=== PATIENT | male | born 1935 | race Caucasian/White ===

== ENCOUNTER 2019-08-01 06:28 | Observation (INO) | payer OTHER ==
[2019-07-21 08:47] LABS: ABSOLUTE BASOPHILS 0.1 thou/uL (0.0-0.2); ABSOLUTE EOSINOPHILS 0.2 thou/uL (0.0-0.7); ABSOLUTE LYMPHOCYTES 1.8 thou/uL (0.8-5.3); ABSOLUTE MONOCYTES 0.6 thou/uL (0.0-1.2); ABSOLUTE NEUTROPHILS 4.6 thou/uL (1.6-8.1); BASOPHILS 0.8 %; EOSINOPHILS 3.4 %; HEMATOCRIT 41.3 % (42.0-52.0); HEMOGLOBIN 14.6 gm/dL (14.0-18.0); LYMPHOCYTES 24.9 %; MCH 32.6 pg (26.0-34.0); MCHC 35.4 g/dL (28.0-37.0); MCV 92.1 fL (80.0-100.0); MONOCYTES 7.7 %; MPV 7.5 fl. (7.2-11.1); NUCLEATED RBCS 0 /100WBC; PLATELET COUNT* 203 thou/uL (150-400); POLYS 63.2 %; RBC 4.49 mil/uL (4.50-6.00); RDW-CV 13.5 % (10.5-14.5); WBC 7.3 thou/uL (4.0-11.0)
[2019-07-21 08:59] LABS: APTT 26.7 Seconds (25.0-31.3); PROTIME 10.6 Seconds (9.20-11.50)
[2019-07-21 09:08] LABS: CALCIUM 8.9 mg/dL (8.5-10.1); POTASSIUM 4.2 mmol/L (3.5-5.1); TOTAL BILIRUBIN 0.6 mg/dL (<0.1-1.0); TOTAL PROTEIN 7.3 g/dL (6.4-8.2)
[2019-07-21 10:50] LABS: ESR (SEDRATE) 13 mm/hr (0-20)
--- NOTE | 2019-07-29 14:57 | EKG ---
[place] [address] ELECTROCARDIOGRAM REPORT Name: PRAKASH GELLER Room: [facility]#: [id number] Admission: Attend Phys: Jaziel Rivera DO Discharge: Date of : 33 Date of Service: 07/21/19858 Report #: [id number] THIS REPORT FOR: //name// [facility] Test Date: 2019-07-21 Test Time: 08:59:15 Pat Name: PRAKASH GELLER Department: Room: Gender: Fitness Floor Attendant: : 1935 Requested By: Jaziel Rivera Order Number: [id number] Francesco MD: Xavier Mota Measurements Intervals [place] Rate: 60 P: 0 FL: 176 QRS: -9 QRSD: 101 T: 30 QT: 412 QTc: 412 Interpretive Statements Sinus rhythm No previous ECG available for comparison Electronically Signed On 07-21-2019 9:56:17 FORMULA TECHNICIAN by Xavier Mota [email or web address] <ELECTRONICALLY SIGNED> By: Xavier Mota MD, [facility] 07/21/19 0956 0859 Xavier Mota MD, FACC /EPI
[~2019-08-01] VITALS: Ht 177.8 cm; Wt 88.0 kg
--- NOTE | ~2019-08-01 | OP ---
[address] [address] OPERATIVE REPORT Name: PRAKASH GELLER Room: [address] Garry Montiel#: [id number] Admission: 08/01/19 Attend Phys: Perez Barraza Discharge: Date of : 33 Report #: [id number] THIS REPORT FOR: //name// cc: Xavier Thurston MD, David D. MD ~ THIS REPORT FOR: //name// CC: Xavier Bragg DICTATED BY: Harrison Walter DO DATE OF SERVICE: 08/01/2019 PREOPERATIVE DIAGNOSIS: Left knee advanced degenerative joint disease. POSTOPERATIVE DIAGNOSIS: Left knee advanced degenerative joint disease. SURGERY PERFORMED: Left total knee arthroplasty. SURGEON: Jaziel Rivera DO TRANSFER COORDINATOR: JAH Finch SECOND FIXER BOARDING ROOM: Harrison Walter DO ANESTHESIA: General. ESTIMATED BLOOD LOSS: 390 mL. COMPLICATIONS: None. CONDITION: Stable to PACU. ORTHOPEDIC IMPLANTS: Biomet Vanguard total knee system with following components; 1. Size 72.5 mm CR femoral component. 2. A 79 mm tibial baseplate. 3. A 79 mm anterior stabilized tibial bearing. 4. A 37 mm asymmetric polyethylene patella. INDICATIONS FOR PROCEDURE: The patient is a pleasant 84-year-old male who has been followed in the outpatient orthopedic clinic regarding longstanding left knee pain. He has tried and failed conservative care consisting of home exercises, activity modifications, NSAID analgesia and corticosteroid injections. He has had continued pain that adversely affect his quality of [facility] [address] [place] [address] OPERATIVE REPORT Name: PRAKASH GELLER Zainab Room: [address] Tiana#: [id number] Admission: 08/01/19 Attend Phys: Perez Barraza Discharge: Date of : 33 Report #: [id number] life. We discussed further treatment including left total knee arthroplasty. Risks, benefits, complications and alternatives of the procedure were discussed with the patient in detail. Risks include but are not limited to DVT/PE bleeding, infection, continued knee pain, periprosthetic fracture, loosening of components, need for repeat surgery and complication with anesthesia and even . The patient expressed understanding and wished to proceed. DESCRIPTION OF PROCEDURE: The patient was transferred to the operating suite and placed on the operating table in the supine position. He was given the benefit of general anesthesia. A well-padded pneumatic tourniquet was placed on left upper thigh. The left lower extremity was then prepped and draped in the usual sterile fashion. A timeout was taken to confirm the appropriate patient identification, operative site and procedure to be performed. All in the room were in agreement with the timeout. An incision was performed over the anterior aspect of the left knee longitudinally. Dissection was carried down sharply to the level of the joint capsule and extensor mechanism. A fresh scalpel blade was then used to perform a medial parapatellar arthrotomy. A medial subperiosteal sleeve was developed along the tibia. The patella was everted. Infrapatellar fat pad was sharply excised. Femoral drill was then used to gain femoral canal access. Intramedullary guide was inserted, set to resect 12 mm of bone off the distal femur. Sagittal saw was then used to perform a distal femoral cut. Attention was then addressed to the tibia where the extramedullary guide was used to pin the proximal tibial cutting block in place. This was referenced 12 mm off the high lateral side and in line with the medial third of the tubercle and the middle of the talus, then the tibial crest. The proximal tibial cut was then performed through the cutting block. During all of our bony resection, retractors were used to protect vital structures. Extension block was then checked, which demonstrated full extension and a well-balanced knee to varus and valgus. Attention was then addressed back to the femur where the AP sizer was used to measure the distal femur to a size 72.5 mm. This cutting block was pinned into place, 3 degrees of external rotation, relative to the posterior condylar axis. The anterior, posterior and chamfer cuts were then performed through the cutting block. Excess bone was removed. Menisci, ACL and PCL were then excised using electrocautery. Trial tibial baseplate was then pinned into position in appropriate rotation, measuring a size 79 mm. The trial femoral component was then malleted into position. A 10 mm trial spacer was placed. The knee was taken through range of motion and was found to be well balanced in flexion and extension. It achieved full extension. Varus and valgus were stable in full extension, mid flexion and full flexion. The patella was then everted and [place] [address] OPERATIVE REPORT Name: PRAKASH GELLER Room: [address] Garry Montiel#: [id number] Admission: 08/01/19 Attend Phys: Perez Barraza Discharge: Date of : 33 Report #: [id number] reamer. This then measured to a size 37 mm. Patellar peg holes were drilled and a trial patella was placed. The knee was again taken through range of motion and was found to be stable again and the patella was noted to track well throughout the flexion arc. Trial components were then removed. The tibia was reamed and punched through the tibial tray. The knee was thoroughly irrigated. Orthopedic cocktail was injected in the posterior capsule. Cement was mixed and applied to the cut surfaces of the bone and the back surfaces of our implants. Final implants were malleted in position and allowed to harden with a 10 mm spacer block. The knee was again taken through range of motion with final implants in place and was again noted to be well balanced in full extension, mid flexion and full flexion. The patella was noted to track well. The knee was again irrigated. Topical TXA was applied. Topical vancomycin powder was then applied. The capsule was closed using #1 Vicryl followed by a running #1 Stratafix. A 2-0 Vicryl was used to close subcutaneous tissue. Final skin closure was performed using a running 3-0 subcuticular Stratafix followed by skin glue. Sterile dressings were applied. The patient was transferred to PACU in stable condition. ATTESTATION: Dr. Rivera was present and scrubbed in through the entirety of the procedure. By: 1818 Maya Rivera DO /jamal
[~2019-08-01 06:28] MED LIST: DILTIAZEM 24HR240 M1 PO
[2019-08-02] VITALS: BP 114/66
[2019-08-02 03:26] LABS: HEMATOCRIT 31.1 % (42.0-52.0); HEMOGLOBIN 11.1 gm/dL (14.0-18.0)
[2019-08-02 04:00] VITALS: BP 129/75
--- NOTE | 2019-08-02 06:47 | NUR ---
PATIENT HAS RESTED WELL THROUGHOUT THE NIGHT. VSS ON 2L 02 VIA NASAL CANNULA. MEDICATIONS GIVEN ORDERED AND CHARTED. PAIN WELL CONTROLLED. DRESSING TO LEFT KNEE IS C/D/I AND ON Q PUMP IN PLACE AT 8 WITH SMALL AMOUNT OF DRAINAGE AT INSERTION SITE. JENNIFER HOSE AND SCD'S IN PLACE. PATIENT USING BEDSIDE URINAL AND URINATING ADEQUATELY. IV IN LEFT WRIST-1/2 NS @ 75ML/HR. PATIENT INSTRUCTED TO USE CALL LIGHT WHEN NEEDING ASSISTANCE. HOURLY ROUNDS MADE. WILL CONTINUE WITH PLAN OF CARE AND NURSING TO MONITOR.
--- NOTE | 2019-08-02 10:04 | NUR ---
RECIEVED O.T. EVAL AND TX ORDER. WILL DEFER TO P.T. AT THIS TIME. PLEASE ORDER FURTHER O.T. SERVICES IF NEEDED.
[2019-08-02] MEDS ORDERED: ELIQUIS5 MG PO (10:07)
[2019-08-02] MEDS ORDERED: OXYCODONE HCL 55 MG PO (10:07)
[2019-08-02] MEDS ORDERED: TRAMADOL 50 MG50 MG PO (10:07)
[2019-08-02 10:26] VITALS: BP 111/83
--- NOTE | 2019-08-02 10:59 | EKG ---
[place] [address] ELECTROCARDIOGRAM REPORT Name: PRAKASH GELLER Room: [address]#: [id number] Admission: 08/01/19 Attend Phys: Elvin Bragg Discharge: Date of : 33 Date of Service: 08/01/19 1903 Report #: [id number] THIS REPORT FOR: //name// [facility] Test Date: 2019-08-01 Test Time: 19:03:27 Pat Name: PRAKASH GELLER Department: Room: [facility] Gender: M Swamper: SHANTA : 1935 Requested By: Fredo Harkins Order Number: [id number] Francesco MD: Justin Aguilar Measurements Intervals [place] Rate: 70 P: 0 NC: 361 QRS: -11 QRSD: 104 T: -7 QT: 434 QTc: 469 Interpretive Statements Sinus rhythm Atrial premature complex Prolonged NC interval Borderline T abnormalities, inferior leads Compared to ECG 07/21/2019 08:59:15 Atrial premature complex(es) now present First degree AV block now present T-wave abnormality now present Electronically Signed On 08-02-2019 10:58:38 CDT by Justin Aguilar [email or web address] <ELECTRONICALLY SIGNED> By: Justin Aguilar MD, FACC 08/02/19 1058 02 190 Justin Aguilar MD, FACC /EPI
[2019-08-02 11:22] VITALS: BP 111/83
--- NOTE | 2019-08-02 12:00 | NUR ---
LATOYA CALLED IN ELIQUIS PRESCRIPTION WRITTEN TO [facility]. PER JUSTIN/TRANSPORTATION PROJECT MANAGER, COPAY WAS $236. HE RAN NUMBERS ON ELIQUIS FREE 30 DAY PRESCRIPTION COUPON AND IT WAS APPROVED. COUPON GIVEN TO PT. HE WILL PRESENT IT TO THE PHARMACY WHEN PICKING UP MEDS. HE LIVES WITH HIS AT HOME AND SHE CAN ASSIST HIM NEEDED.HE SAID HE IS NORMALLY INDEPENDENT AT HOME. HE DOES HAVE A FWW. HE IS FEELING REALLY GOOD AND WOULD LIKE TO GO HOME. HE CHOSE OUTPT[facility]THERAPY AT [facility] IN [facility]. HE WENT THERE PREOP. HE IS PLANNING ON STOPPING BY TO SET UP APPTS., ON HIS WAY HOME. RN OKD OUTPT.THERAPY WITH DR. KLEIN WILL FAX ORDER AND OP REPORT TO THEM. HAD TO LEAVE A MESSAGE FOR THEM TO CALL BACK WITH THEIR FAX NUMBER.
--- NOTE | 2019-08-02 16:44 | NUR ---
ASSUMED CARE OF PATIENT AT APPROX 0730. ALERT AND ORIENTED X4. ASSESSMENT COMPLETED AND CHARTED. VSS ON ROOM AIR. NO COMPLAINTS OF PAIN. PATIENT UP WITH GAIT BELT AND WALKER, WORKING WELL WITH THERAPIES. PATIENT DISCHARGED AT 1530 WITH ALL PERSONAL BELONGINGS, PRESCRIPTIONS AND DISCHARGE INFORMATION.
== END 2019-08-02 15:30 | disposition home or self-care (01) ==
LOC: M.PRE 06:28 → M.TBA 13:35 → M.ORTHSURG 13:35 → M.PRE 14:34 → M.ORTHSURG 20:09
PROVIDERS: Orthopaedic Surgery; ADMIT Internal Medicine
DX: M17.12 Unilateral primary osteoarthritis, left knee (principal); D62 Acute posthemorrhagic anemia

== ENCOUNTER 2019-10-03 07:11 | Inpatient (IN) | payer OTHER ==
[2019-09-29 14:55] LABS: ABSOLUTE EOSINOPHILS 0.3 thou/uL (0.0-0.7); ABSOLUTE LYMPHOCYTES 1.3 thou/uL (0.8-5.3); ABSOLUTE MONOCYTES 0.6 thou/uL (0.0-1.2); ABSOLUTE NEUTROPHILS 4.8 thou/uL (1.6-8.1); BASOPHILS 0.7 %; EOSINOPHILS 3.6 %; HEMATOCRIT 36.6 % (42.0-52.0); HEMOGLOBIN 12.5 gm/dL (14.0-18.0); LYMPHOCYTES 18.7 %; MCH 30.5 pg (26.0-34.0); MCHC 34.1 g/dL (28.0-37.0); MCV 89.4 fL (80.0-100.0); MONOCYTES 8.5 %; MPV 7.3 fl. (7.2-11.1); NUCLEATED RBCS 0 /100WBC; PLATELET COUNT* 326 thou/uL (150-400); POLYS 68.5 %; RBC 4.09 mil/uL (4.50-6.00); WBC 7.1 thou/uL (4.0-11.0)
[2019-09-29 15:05] LABS: APTT 28.8 Seconds (25.0-31.3); INR 1.1; PROTIME 11.1 Seconds (9.20-11.50)
[2019-09-29 15:09] LABS: ALBUMIN 3.4 g/dL (3.4-5.0); CALCIUM 8.7 mg/dL (8.5-10.1); CREATININE 1.1 mg/dL (0.6-1.3); POTASSIUM 3.8 mmol/L (3.5-5.1); TOTAL BILIRUBIN 0.4 mg/dL (<0.1-1.0); TOTAL PROTEIN 7.2 g/dL (6.4-8.2)
[2019-09-29 15:56] LABS: ESR (SEDRATE) 36 mm/hr (0-20)
[~2019-10-03] VITALS: Ht 177.8 cm; Wt 88.0 kg
[~2019-10-03 07:11] MED LIST changes: +ELIQUIS5 MG PO; +OXYCODONE HCL 55 MG PO; +TRAMADOL 50 MG50 MG PO
[2019-10-03 16:18] VITALS: BP 107/63
--- NOTE | 2019-10-03 17:31 | NUR ---
PT A&Ox4. VITALS STABLE. IV PATENT. DENIED PAIN. DENIED NAUSEA. UP WITH 1 ASSIST. WORKED WITH THERAPY AROUND ROOM. DRESSING C/D/I. TEDs, ICE PACK, SCDs AND ON Q PUMP IN PLACE. TOLERATING FOOD. FALL PRECAUTIONS IN PLACE. CALL LIGHT WITHIN REACH. WILL CONTINUE TO MONITOR.
[2019-10-03 19:30] VITALS: BP 121/69
[2019-10-04 00:03] VITALS: BP 122/78
[2019-10-04 05:59] LABS: HEMATOCRIT 29.9 % (42.0-52.0); HEMOGLOBIN 10.3 gm/dL (14.0-18.0)
[2019-10-04 06:10] VITALS: BP 118/81
[2019-10-04] MEDS ORDERED: OXYCODONE HCL 55 MG PO (07:51)
[2019-10-04] MEDS ORDERED: COLACE 100 MG100 MG PO (07:51)
[2019-10-04] MEDS ORDERED: ELIQUIS5 MG PO (07:51)
--- NOTE | 2019-10-04 07:55 | NUR ---
PATIENT HAS SLEPT WELL THROUGHOUT MOST OF THE NIGHT. VSS ON 2L 02 VIA NASAL CANNULA. PAIN WELL CONTROLLED. MEDICATIONS GIVEN ORDERED AND CHARTED. DRESSING TO RIGHT KNEE IS C/D/I, SCD'S AND JENNIFER HOSE IN PLACE. ON Q PUMP IN PLACE. PATIENT IS UP WITH ASSIST X 1 TO THE BSC. PATIENT USES BEDSIDE URINAL. IV IN LEFT FOREARM-LR @ 40ML/HR. PATIENT INSTRUCTED TO USE CALL LIGHT WHEN NEEDING ASSISTANCE. HOURLY ROUNDS MADE. WILL CONTINUE WITH PLAN OF CARE AND NURSING TO MONITOR.
[2019-10-04 08:02] VITALS: BP 120/76
[2019-10-04 12:04] VITALS: BP 116/74
[2019-10-04 13:22] VITALS: BP 116/74
[2019-10-04] MEDS ORDERED: TRAMADOL 50 MG50 MG PO (13:42)
--- NOTE | 2019-10-04 15:44 | NUR ---
SW called pt room with no answer. SW called pt who did not answer; SW left message for pt introducing self and requesting call back with any questions or dc planning needs. Pt might be able to dc home today and follow up with OP therapy services. Pt preference is [facility] as has hx with them in July of this year. Pt also has hx with blood thinner; Eliquis. SW to assist with finalizing safe dc plan.
--- NOTE | 2019-10-04 16:18 | NUR ---
PT DISCHARGED AT 1555 BY WHEELCHAIR WITH NURSING STAFF AND TO HOME WITH OP THERAPY. IV OUT. PAIN CONTROLLED. TOLERATING. DIET. WORKED WELL WITH THERAPY. PAIN PUMP IN PLACE. DRESSING C/D/I. TEDS IN PLACE. PAPER SCRIPTS AND CARE NOTES GIVEN. PERSONAL BELONINGS SENT WITH PT.
--- NOTE | 2019-10-04 17:27 | NUR ---
RECIEVED O.T. ORDERS. WILL DEFER TO P.T. AT THIS TIME. PLEASE ORDER FURTHER O.T. SERVICES IF NEEDED.
== END 2019-10-04 16:21 | disposition home or self-care (01) | DRG 470 ==
LOC: M.PRE 07:11 → M.TBA 07:59 → M.3W 12:19 → M.PRE 14:23 → M.3W 10-04 16:21
PROVIDERS: Orthopaedic Surgery; ADMIT Internal Medicine
PROC: 0SRC0J9 Replacement of Right Knee Joint with Synthetic Substitute, Cemented, Open Approach (ICD-10-PCS; principal; 2019-10-03)
DX: M17.11 Unilateral primary osteoarthritis, right knee (principal); D62 Acute posthemorrhagic anemia; I10 Essential (primary) hypertension; Z20.828 Contact with and (suspected) exposure to other viral communicable diseases